=== PATIENT | male | born 1970 | race Hispanic/Latino ===

== ENCOUNTER 2019-12-01 20:12 | Inpatient (IN) | payer SELFPAY ==
[~2019-12-01 20:12] MED LIST: Iopamidol-370 76% 500 ML 1 ML ONE
[2019-12-01] MEDS ORDERED: Ondansetron PF 4 MG/2 ML Vial ONE (21:06)
[2019-12-01] MEDS ORDERED: Morphine 4 MG/ML VIAL ONE (21:06)
--- NOTE | 2019-12-01 22:31 | CT ---
EXAM: CT ABDOMEN AND PELVIS HISTORY: Epigastric pain. Abdominal pain. COMPARISON: None. Procedure: Multiple contiguous axial images were obtained and a CT of the abdomen and pelvis with IV contrast. C oronal reformats were performed. FINDINGS: Lower Chest: Interval evaluated 0.5 and 0.6 cm solid nodules in the right lower lobe Vessels: Normal caliber aorta Heart: Normal heart Abdomen: Portal vein:Patent Gallbladder: Mild enhancement of the gallbladder wall with mild stranding of the pericholecystic fat. Liver: within normal limits. Pancreas: within normal limits. Spleen: within normal limits. Adrenals: within normal limits. Kidneys: Symmetric enhancement. No obstructive uropathy. Peritoneum: No free air or fluid collection. Small amount of stranding of the mesentery in the gallbl adder fossa. Bowel: Limited evaluation due to the lack of oral contrast administration. Fluid and Fecalization of the distal ileum and part be due to a developing obstructive process or ileus. Retrocecal appendix is air-filled with a normal caliber. Adjacent fat stranding likely reactive secondary to the findings in the gallbladder fossa. Scattered fecal material in a nondistended, nondilated colon. Diverticulosis, without evidence of diverticulitis Mesentery and Retroperitoneum: No enlarged mesenteric or retroperitoneal lymph nodes. Abdominal Wall: within normal limits. Pelvis: Reproductive Organs: Reproductive organs are unremarkable. Pelvis: No mass, lymphadenopathy, free air or free fluid. Bladder: within normal limits. Bones: No acute osseous abnormalities. Bilateral pars defects at L5 without significant spondylolisth esis. IMPRESSION: 1. Possible developing ileus or bowel obstruction with regards the distal small bowel loops. 2. CT evidence for cholecystitis. 3. Incompletely evaluated solid nodules in the right lower lobe. Code lung nodule
[2019-12-01 22:38] LABS: #Lymphocytes 1.1 thou/uL (1.20-3.40); #Monocytes 0.6 thou/uL (0.11-0.59); #Neutrophils 6.5 thou/uL (1.40-6.50); %Basophils 0.3 % (0.0-1.0); %Eosinophils 0.2 % (0.0-10.0); %Lymphocytes 12.8 % (21.0-51.0); %Monocytes 7.1 % (0.0-10.0); %Neutrophils 79.6 % (42.0-75.0); Hemoglobin 13.8 g/dL (14.0-18.0); Mean Corpuscular HGB CONC 32.8 g/dL (32.0-36.0); Mean Corpuscular Hemoglobin 30.1 pg (27.0-31.0); Mean Corpuscular Volume 91.8 fL (78.0-98.0); Mean Platelet Volume 9.3 fL (7.4-10.4); Platelet Count 162 thou/uL (130-400); RBC Distribution Width 11.5 % (11.5-14.5); Red Blood Cell (RBC) Count 4.57 mill/uL (4.70-6.10); White Blood Cell (WBC) Count 8.2 thou/uL (4.8-10.8)
[2019-12-01 23:13] LABS: ALT (SGPT) 11 U/L (8-55); AST (SGOT) 13 U/L (5-34); Albumin 3.9 g/dL (3.5-5.0); Alkaline Phosphatase 81 U/L (40-110); Anion Gap 12 mmol/L (10-20); BUN (Urea Nitrogen) 12 mg/dL (8.4-25.7); Calc. Creatinine Clearance 0 mL/min (70-130); Calcium 8.9 mg/dL (7.8-10.44); Carbon Dioxide 30 mmol/L (22-29); Chloride 99 mmol/L (98-107); Estimated GFR-MDRD 81; Globulin 2.6 g/dL (2.4-3.5); Glucose 238 mg/dL (70-105); Lipase 51 U/L (8-78); Potassium 3.6 mmol/L (3.5-5.1); Protein, Total 6.5 g/dL (6.0-8.3); Sodium 137 mmol/L (136-145)
[2019-12-01 23:21] LABS: Bilirubin Negative (Negative); Blood, Urine Negative (Negative); Clarity Clear (Clear); Glucose, Urine (Dipstick) 500 mg/dL (Negative); Leukocyte Negative Leu/uL (Negative); Nitrite Negative (Negative); Protein, Urine (Dipstick) 20 mg/dL (Neg-Trace); Urobilinogen Normal mg/dL (Less than 2)
[2019-12-02] MEDS ORDERED: Piperacillin/Tazobactam 3.375 GM VIAL ONE (00:02)
[2019-12-02] MEDS ORDERED: Ondansetron ODT 4 MG TAB SL PRN (01:16)
[2019-12-02] MEDS ORDERED: Ondansetron PF 4 MG/2 ML Vial IVP PRN ×2 (01:16→10:42)
[2019-12-02] MEDS: Lactated Ringer's 1,000 ML IV SCH ×2 (03:09→08:17)
[2019-12-02 04:13] VITALS: BMI 20.9
[2019-12-02] MEDS ORDERED: Piperacillin/Tazobactam 3.375 GM in Sodium Chloride 0.9% 100 ML IVPB SCH (06:00)
[2019-12-02 06:35] LABS: #Lymphocytes 1.2 thou/uL (1.20-3.40); #Monocytes 0.6 thou/uL (0.11-0.59); #Neutrophils 4.6 thou/uL (1.40-6.50); %Basophils 0.1 % (0.0-1.0); %Eosinophils 0.2 % (0.0-10.0); %Lymphocytes 19.1 % (21.0-51.0); %Monocytes 8.7 % (0.0-10.0); %Neutrophils 71.9 % (42.0-75.0); Hemoglobin 13.2 g/dL (14.0-18.0); Mean Corpuscular HGB CONC 33.7 g/dL (32.0-36.0); Mean Corpuscular Hemoglobin 31.1 pg (27.0-31.0); Mean Corpuscular Volume 92.3 fL (78.0-98.0); Mean Platelet Volume 9.4 fL (7.4-10.4); Platelet Count 157 thou/uL (130-400); RBC Distribution Width 11.5 % (11.5-14.5); Red Blood Cell (RBC) Count 4.23 mill/uL (4.70-6.10); White Blood Cell (WBC) Count 6.3 thou/uL (4.8-10.8)
[2019-12-02 06:59] LABS: ALT (SGPT) 9 U/L (8-55); AST (SGOT) 13 U/L (5-34); Albumin 3.5 g/dL (3.5-5.0); Alkaline Phosphatase 70 U/L (40-110); Anion Gap 15 mmol/L (10-20); BUN (Urea Nitrogen) 10 mg/dL (8.4-25.7); Bilirubin, Direct 0.7 mg/dL (0.1-0.3); Bilirubin, Total 1.9 mg/dL (0.2-1.2); Calc. Creatinine Clearance 86 mL/min (70-130); Calcium 8.3 mg/dL (7.8-10.44); Carbon Dioxide 24 mmol/L (22-29); Chloride 101 mmol/L (98-107); Estimated GFR-MDRD Greater than 90; Glucose 207 mg/dL (70-105); Sodium 136 mmol/L (136-145)
[2019-12-02] MEDS ORDERED: cefOXitin Sodium/Dextrose,Iso 2 GM in Premix Bag 1 BAG IVPB SCH (07:45)
--- NOTE | 2019-12-02 07:54 | HP ---
CHIEF COMPLAINT: Right upper quadrant abdominal pain. HISTORY OF PRESENT ILLNESS: The patient is a 49-year-old male, who presents with a 3-day history of right upper quadrant pain, nausea. No vomiting. No fever or chills. PAST MEDICAL HISTORY: Diabetes, hypertension, hyperlipidemia. PAST SURGICAL HISTORY: None. MEDICATIONS: 1. Metformin. 2. Lipitor. 3. Januvia. 4. Glipizide. 5. Lisinopril. 6. Flomax. ALLERGIES: NO KNOWN DRUG ALLERGIES. SOCIAL HISTORY: He is . 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 No tobacco. Rare alcohol. [place]ian speaking. FAMILY HISTORY: Noncontributory. PHYSICAL EXAMINATION: VITAL SIGNS: Temperature 98, pulse 98, blood pressure 110/73. GENERAL: Well-developed, well-nourished male, in no apparent distress. HEENT: No jaundice. LUNGS: Clear. HEART: Regular rate and rhythm. ABDOMEN: Tender in the right upper quadrant. No palpable mass. EXTREMITIES: Unremarkable. LABORATORY DATA: White count 6.3, hemoglobin and hematocrit are 13 and 39, platelet count 157. Electrolytes are fine. Elevated glucose at 207. Total bilirubin is 1.9, down from [address] scan shows some ileus with a distended thickened wall gallbladder, consistent with acute cholecystitis. ASSESSMENT: Cholecystitis. PLAN: Laparoscopic cholecystectomy with cholangiogram. CONSENT: I have discussed planned procedure as well as risk of bleeding, infection, injury to bile duct, injury to bowel, need to open. He understands and gives informed consent. Job ID: [id number]
[2019-12-02] MEDS ORDERED: Iopamidol 50 ML FS ONE (09:24)
[2019-12-02] MEDS ORDERED: Bupivacaine 0.25% HCL 30 ML VIAL ONE (09:24)
[2019-12-02] MEDS ORDERED: Lidocaine 1% w/Epinephrine 1:100K 20 ML VIAL ONE (09:24)
[2019-12-02] MEDS ORDERED: Iopamidol 0 ML ONE (09:24)
[2019-12-02] MEDS ORDERED: Famotidine/PF 20 mg/2ml Vial ONE (09:32)
[2019-12-02] MEDS ORDERED: Fentanyl 100 MCG/2 ML VIAL ONE ×3 (09:32→11:30)
[2019-12-02] MEDS ORDERED: Midazolam HCl 2 mg/2 ml Vial ONE (09:32)
[2019-12-02] MEDS ORDERED: SUGAMMADEX SODIUM 200 MG/2 ML VIAL ONE (10:39)
[2019-12-02] MEDS ORDERED: Calcium Carbonate 500 MG ChewTAB PO PRN (10:42)
[2019-12-02] MEDS ORDERED: Morphine 2 MG/ML SYRINGE SLOW IVP PRN (10:42)
[2019-12-02] MEDS ORDERED: HYDROcodone/Acetaminophen 10/325 mg Tablet PO PRN (10:42)
[2019-12-02] MEDS ORDERED: Dextrose 5% in Water 1,000 ML IV PRN (10:42)
[2019-12-02] MEDS ORDERED: Morphine 4 MG/ML VIAL SLOW IVP PRN (10:42)
[2019-12-02] MEDS ORDERED: Promethazine HCl 25 MG/ML VIAL IM PRN (10:42)
[2019-12-02] MEDS ORDERED: Mag-Al 1200 mg/1200 mg/30 ML UDCUP PO PRN (10:42)
[2019-12-02] MEDS ORDERED: hydrALAZINE 20 MG/ML VIAL SLOW IVP PRN (10:42)
[2019-12-02] MEDS ORDERED: Dextrose 50% Abboject 50 ML SYRINGE SLOW IVP PRN (10:42)
--- NOTE | 2019-12-02 11:44 | OP ---
DATE OF PROCEDURE: 12/02/2019 PREOPERATIVE DIAGNOSIS: Acute cholecystitis. PROCEDURE PERFORMED: Laparoscopic cholecystectomy with intraoperative cholangiogram. INDICATIONS: This is a 49-year-old diabetic male with 2-day history of right upper quadrant pain. CT showed acute cholecystitis. FINDINGS: Thickened wall, inflamed, filled with pus. Cholangiogram did not show any filling defects, free flow in the duodenum. DESCRIPTION OF PROCEDURE: After informed consent was obtained, the patient was taken to the operating room, given general endotracheal anesthesia, placed in supine position. The abdomen was prepped and draped in usual fashion. Local anesthesia was infiltrated subcutaneously and deep. Subumbilical incision was performed, subcu divided sharply. The fascia grasped with two stay sutures of 0 Vicryl placed through each side of midline. Midline incised. Digital palpation revealed no local adhesions. Blunt 12-mm trocar inserted. Pneumoperitoneum was created to a pressure of 15 mmHg. A 0-degree laparoscope inserted under direct vision, three 5-mm ports were placed subcostally. The gallbladder was very inflamed. Aspirating needle was used to remove approximately 50 mL of thick purulent fluid. This was sent for culture. The peritoneum opened to expose the cystic duct artery in critical view. A clip placed at the base of the gallbladder. Incision made in the cystic duct. The Arrow cholangiocatheter inserted. Intraoperative cholangiogram was performed utilizing fluoroscopy. There were no filling defects, free flow in the duodenum. The catheter removed. The duct was triply ligated and divided. The artery triply ligated and divided. The gallbladder removed from its fossa utilizing electrocautery, placed in an endosac and removed from the abdomen in the endosac. Hemostasis was assured. The abdomen was thoroughly irrigated. Irrigation fluid removed. Trocars and retractors were removed. Fascia closed with interrupted 0 Vicryl suture. Skin closed with interrupted 4-0 Rapide. Dermabond applied. The patient tolerated the procedure well, transferred to Recovery in good condition. Sponge and needle count verified correct x2. Job ID: [id number]
[2019-12-02] MEDS: Sodium Chloride 0.9% 1,000 ML IV SCH ×2 (12:06→21:32)
[2019-12-02] MEDS: Ketorolac Tromethamine 30 MG/ML VIAL IVP SCH ×2 (12:07→17:40)
[2019-12-02] MEDS: Piperacillin/Tazobactam 3.375 GM in Sodium Chloride 0.9% 100 ML IVPB SCH ×2 (12:07→17:41)
--- NOTE | 2019-12-02 12:22 | RAD ---
CHOLANGIOGRAM IN SURGERY: Date: 12/02/2019 COMPARISON: CT abdomen/pelvis dated 12/01/2019. HISTORY: Cholelithiasis. FINDINGS/IMPRESSION: Limited fluoroscopic views from a cholangiogram taken in surgery were submitted for interpretation. C ontrast is seen in the common bile duct and pancreatic duct, as well as the duodenum. No obvious fill ing defects are seen. POS: EAA
[2019-12-02] MEDS ORDERED: Rocuronium Bromide 10 MG/ML (10ML VIAL) ONE (15:47)
[2019-12-02] MEDS ORDERED: Ondansetron PF 4 MG/2 ML Vial ONE (15:47)
[2019-12-02] MEDS ORDERED: EPHEDRINE 25 MG/5 ML SYRINGE ONE (15:47)
[2019-12-02] MEDS ORDERED: PROPOFOL 200 MG/20 ML VIAL ONE (15:47)
[2019-12-02] MEDS ORDERED: Glycopyrrolate 0.2 MG/ML 5 ML SYRINGE ONE (15:47)
[2019-12-02] MEDS ORDERED: Ketorolac Tromethamine 30 MG/ML VIAL ONE (15:47)
[2019-12-02] MEDS ORDERED: Lidocaine 1% PF 5 ML VIAL ONE (15:47)
--- NOTE | 2019-12-02 16:10 | EKG ---
Test Reason : Blood Pressure : / mmHG Vent. Rate : 083 BPM Atrial Rate : 083 BPM P-R Int : 152 ms QRS Dur : 090 ms QT Int : 376 ms P-R-T Axes : 083 070 039 degrees QTc Int : 441 ms Normal sinus rhythm Normal ECG Confirmed by VITALY MATIAS DO ([id number]), acquisitions editor HU BOONE ([id number] on 12/02/2019 4:09:20 PM Referred By: Confirmed By:VITALY MATIAS DO
[2019-12-02] MEDS: HYDROcodone/Acetaminophen 10/325 mg Tablet PO PRN (21:31)
[2019-12-02] MEDS: Famotidine 20 MG TAB PO SCH (21:31)
[2019-12-02] MEDS: Famotidine/PF 20 mg/2ml Vial SLOW IVP SCH (21:32)
[2019-12-03] MEDS: Ketorolac Tromethamine 30 MG/ML VIAL IVP SCH ×3 (00:48→11:48)
[2019-12-03] MEDS: Piperacillin/Tazobactam 3.375 GM in Sodium Chloride 0.9% 100 ML IVPB SCH ×3 (00:48→11:49)
[2019-12-03] MEDS: Sodium Chloride 0.9% 1,000 ML IV SCH ×2 (05:01→10:28)
[2019-12-03 06:39] LABS: #Lymphocytes 0.7 thou/uL (1.20-3.40); #Monocytes 0.6 thou/uL (0.11-0.59); #Neutrophils 9.5 thou/uL (1.40-6.50); %Basophils 0.1 % (0.0-1.0); %Lymphocytes 6.6 % (21.0-51.0); %Monocytes 5.4 % (0.0-10.0); %Neutrophils 87.9 % (42.0-75.0); Hemoglobin 13.3 g/dL (14.0-18.0); Mean Corpuscular HGB CONC 33.5 g/dL (32.0-36.0); Mean Corpuscular Hemoglobin 31.6 pg (27.0-31.0); Mean Corpuscular Volume 94.4 fL (78.0-98.0); Mean Platelet Volume 9.3 fL (7.4-10.4); Platelet Count 155 thou/uL (130-400); RBC Distribution Width 11.7 % (11.5-14.5); Red Blood Cell (RBC) Count 4.19 mill/uL (4.70-6.10); White Blood Cell (WBC) Count 10.7 thou/uL (4.8-10.8)
[2019-12-03 07:02] LABS: ALT (SGPT) 41 U/L (8-55); ALT (SGPT) 42 U/L (8-55); AST (SGOT) 54 U/L (5-34); AST (SGOT) 55 U/L (5-34); Albumin 3.2 g/dL (3.5-5.0); Alkaline Phosphatase 58 U/L (40-110); Alkaline Phosphatase 59 U/L (40-110); Anion Gap 17 mmol/L (10-20); BUN (Urea Nitrogen) 8 mg/dL (8.4-25.7); Bilirubin, Direct 0.4 mg/dL (0.1-0.3); Bilirubin, Total 1.8 mg/dL (0.2-1.2); Bilirubin, Total 1.9 mg/dL (0.2-1.2); Calc. Creatinine Clearance 70 mL/min (70-130); Calcium 7.8 mg/dL (7.8-10.44); Carbon Dioxide 15 mmol/L (22-29); Chloride 106 mmol/L (98-107); Estimated GFR-MDRD 79; Globulin 2.6 g/dL (2.4-3.5); Glucose 249 mg/dL (70-105); Lipase 15 U/L (8-78); Potassium 4.4 mmol/L (3.5-5.1); Protein, Total 5.6 g/dL (6.0-8.3); Protein, Total 5.8 g/dL (6.0-8.3); Sodium 134 mmol/L (136-145)
--- NOTE | 2019-12-03 08:02 | PRG ---
DATE OF SERVICE: 12/03/2019 SUBJECTIVE: The patient is feeling some bloating. He is tolerating some clear liquids. He denies nausea. He is not hungry. He denies any passage of flatus. OBJECTIVE: He looks okay. His abdomen does not appear to be distended. The incisions are healing well. There is no evidence of infection. LABORATORY DATA: His white count is 10, hemoglobin and hematocrit are 13 and 39, platelet count 155. Electrolytes: His glucose is 249, T bilirubin 1.8. The culture is not growing anything. ASSESSMENT: Status post laparoscopic cholecystectomy. PLAN: Restart his home medications. Ambulate. Job ID: [id number]
[2019-12-03] MEDS: Famotidine 20 MG TAB PO SCH (08:10)
[2019-12-03] MEDS: Famotidine/PF 20 mg/2ml Vial SLOW IVP SCH (08:11)
[2019-12-03] MEDS: HYDROcodone/Acetaminophen 10/325 mg Tablet PO PRN (08:14)
[2019-12-03] MEDS ORDERED: Lisinopril 2.5 MG TAB PO SCH (09:00)
[2019-12-03] MEDS ORDERED: Enoxaparin Sodium 30 MG/0.3 ML SYRINGE SC SCH (09:00)
[2019-12-03 10:23] VITALS: BP 113/74; TEMP 98.1
[2019-12-03] MEDS ORDERED: Insulin Regular 300 UNITS/3 ML VIAL SC PRN ×2 (11:27)
--- NOTE | 2019-12-03 12:38 | PDOC.HOSPP ---
- Subjective Encounter Date: 12/03/19 Encounter Time: 12:00 Subjective: Patient seen and examined for med mngt. Abd pain improving. No N/V. No other complaints. No overnight events - Objective Vital Signs & Weight: Vital Signs (12 hours) Temp Pulse Resp BP Pulse Ox 12/03/19 08:10 107 H 12/03/19 08:00 98.1 F 100 18 113/74 97 12/03/19 04:00 98.0 F 107 H 16 106/69 96 Weight Weight 125 lb 10.616 oz I&O: 12/02/19 12/03/19 12/04/19 06:59 06:59 06:59 Intake Total 400 Output Total 300 Balance -300 400 Result Diagrams: 12/03/19 06:26 12/03/19 06:26 Additional Labs: Accuchecks 12/03/19 12/03/19 12/02/19 11:01 04:25 19:58 POC Glucose 324 H 239 H 226 H 12/02/19 16:49 POC Glucose 250 H Radiology Reviewed by me: Yes (CT abd - Acute Cholecystitis) Hospitalist ROS - Review of Systems Respiratory: denies: cough, dry, shortness of breath, hemoptysis, SOB with excertion, pleuritic pain, sputum, wheezing, other Cardiovascular: denies: chest pain, palpitations, orthopnea, paroxysmal noc. dyspnea, edema, light headedness, other - Medication Medications: Active Medications Generic Name Dose Route Start Last Admin Trade Name Freq PRN Reason Stop Dose Admin Hydrocodone Bitart/Acetaminophen 1 tab 12/02/19 10:42 12/03/19 08:14 [place] 10/325 PO 1 tab Q6H PRN Administration Moderate Pain (4-6) Enoxaparin Sodium 30 mg 12/03/19 09:00 12/03/19 08:11 Lovenox SC 30 mg 0900 ALEXIS Administration Famotidine 20 mg 12/02/19 21:00 12/03/19 08:10 Pepcid PO 20 mg Q12HR ALEXIS Administration Famotidine 20 mg 12/02/19 21:00 12/03/19 08:11 Pepcid SLOW IVP Not Given Q12HR ALEXIS Glipizide 10 mg 12/03/19 11:30 12/03/19 11:48 Glucotrol Xl PO 12/03/19 13:30 10 mg NOW ALEXIS Administration Sodium Chloride 1,000 mls @ 120 mls/hr 12/02/19 10:45 12/03/19 10:28 Normal Saline 0.9% IV 1,000 mls .Q8H20M ALEXIS Administration Piperacillin Sod/Tazobactam 100 mls @ 200 mls/hr 12/02/19 12:00 12/03/19 11: 49 Sod 3.375 gm/ Sodium Chloride IVPB 100 mls Q6HR ALEXIS Administration Insulin Human Regular 0 units 12/03/19 11:27 12/03/19 11:52 Humulin R SC 8 unit .MODERATE SLIDING SC PRN Administration Moderate Correctional Scale Ketorolac Tromethamine 15 mg 12/02/19 12:00 12/03/19 11:48 Toradol IVP 12/07/19 12:01 15 mg Q6HR ALEXIS Administration Lisinopril 2.5 mg 12/03/19 09:00 12/03/19 08:10 Zestril PO 2.5 mg DAILY ALEXIS Administration Morphine Sulfate 2 mg 12/02/19 10:42 12/02/19 16:20 Morphine SLOW IVP 2 mg Q2H PRN Administration Mild Pain (1-3) - Exam General Appearance: NAD Neck: supple, symmetric, no JVD, no carotid bruit Heart: RRR, no gallops, no rubs, normal peripheral pulses Respiratory: no wheezes, no rales, no ronchi, normal chest expansion Gastrointestinal: non-tender, non-distended, no guarding, no rigidity Extremities: no cyanosis, no clubbing, no edema Neurological: no new deficit Psychiatric: normal affect, A&O x 3 Hosp A/P - Plan DVT proph w/SCDs DM2 - uncontrolled HTN HLD Hyponatremia Abn LFTs due to Acute cholecystitis PLAN: on IV Zosyn s/p Lap delvin 12/01 Restart Glipizide XL, Metformin and Januvia Glucose check ACHS and 0200 Moderate sliding scale Cont Lisinopril Add PRN meds
[2019-12-03] MEDS ORDERED: hydrALAZINE 20 MG/ML VIAL SLOW IVP PRN (12:50)
[2019-12-03] MEDS ORDERED: metFORMIN 500 MG TAB PO SCH (17:00)
--- NOTE | 2019-12-03 20:58 | DIS ---
DATE OF ADMISSION: 12/02/2019 DATE OF DISCHARGE: 12/03/2019 DISCHARGE DIAGNOSES: Acute cholecystitis and diabetes mellitus. PROCEDURES DURING ADMISSION: Laparoscopic cholecystectomy with intraoperative cholangiogram. HOSPITAL COURSE: The patient was admitted, given IV antibiotics, taken to the operating room, where he underwent a laparoscopic cholecystectomy with cholangiogram. Cholangiogram was fine. He was found to have acute cholecystitis. He has been on antibiotics. He is doing well. He is tolerating liquids well. He is discharged home on [place], Zofran, and doxycycline and follow up with me in 2 weeks. Job ID: [id number]
[2019-12-04] MEDS ORDERED: Saccharomyces boulardii 250 MG CAP PO SCH (09:00)
[2019-12-04] MEDS ORDERED: Alogliptin 6.25 MG TAB PO SCH (09:00)
== END 2019-12-03 17:18 | disposition home or self-care (01) | DRG 418 ==
LOC: ERS 20:12 → T4-A 12-02 00:46
PROVIDERS: ADMIT Surgery; ATTEND Surgery
PROC: 0FT44ZZ Resection of Gallbladder, Percutaneous Endoscopic Approach (ICD-10-PCS; principal; 2019-12-02)
PROC: BF111ZZ Fluoroscopy of Biliary and Pancreatic Ducts using Low Osmolar Contrast (ICD-10-PCS; 2019-12-02)
DX: K81.0 Acute cholecystitis (principal); E87.1 Hypo-osmolality and hyponatremia; E78.5 Hyperlipidemia, unspecified; E78.00 Pure hypercholesterolemia, unspecified; I10 Essential (primary) hypertension; E11.65 Type 2 diabetes mellitus with hyperglycemia; Z79.899 Other long term (current) drug therapy; Z79.84 Long term (current) use of oral hypoglycemic drugs
CPT/HCPCS: 36415; 36416; 47532; 74177; 80048; 80053; 80076; 81003; 83690; 84484; 85025; 86850; 86900; 86901; 87070; 87077; 87186; 87205; 88304; 93005; 96365; 96375; J0694; J1650; J1815; J1885; J2001; J2250; J2270; J2405; J2543; J2704; J3010; J3490; Q9967; S0020; S0028

== ENCOUNTER 2020-01-20 19:15 | Emergency (ER) | payer OTHER, SELFPAY ==
[2020-01-20 20:21] LABS: Hemoglobin 13.6 g/dL (14.0-18.0); Mean Corpuscular HGB CONC 35.1 g/dL (32.0-36.0); Mean Corpuscular Hemoglobin 30.6 pg (27.0-31.0); Mean Corpuscular Volume 87.2 fL (78.0-98.0); Mean Platelet Volume 9.7 fL (7.4-10.4); Platelet Count 235 thou/uL (130-400); RBC Distribution Width 11.9 % (11.5-14.5); Red Blood Cell (RBC) Count 4.43 mill/uL (4.70-6.10); White Blood Cell (WBC) Count 8.6 thou/uL (4.8-10.8)
[2020-01-20] MEDS ORDERED: Aspirin Chewable 81 MG TAB ONE (20:25)
[2020-01-20] MEDS ORDERED: Nitroglycerin 2% Ointment 1 INCH/1 GM Packet ONE (20:25)
[2020-01-20 20:38] LABS: ALT (SGPT) 14 U/L (8-55); AST (SGOT) 17 U/L (5-34); Albumin 4.3 g/dL (3.5-5.0); Alkaline Phosphatase 108 U/L (40-110); Anion Gap 15 mmol/L (10-20); BUN (Urea Nitrogen) 12 mg/dL (8.4-25.7); Calc. Creatinine Clearance 0 mL/min (70-130); Calcium 9.9 mg/dL (7.8-10.44); Carbon Dioxide 27 mmol/L (22-29); Chloride 97 mmol/L (98-107); Estimated GFR-MDRD 85; Globulin 3.6 g/dL (2.4-3.5); Glucose 236 mg/dL (70-105); Potassium 3.9 mmol/L (3.5-5.1); Protein, Total 7.9 g/dL (6.0-8.3); Sodium 135 mmol/L (136-145)
--- NOTE | 2020-01-20 20:43 | RAD ---
Chest AP view INDICATION: Shortness of breath and midsternal chest pain COMPARISON: Single view of the chest dated August 06, 2009 FINDINGS: Lungs: The lungs are clear Cardiac silhouette: The cardiomediastinal silhouette appears within normal limits. Pulmonary vasculature: Normal Pleural spaces: No pleural effusion or pneumothorax is demonstrated. Upper abdomen: No abnormality seen. Osseous structures: No acute osseous abnormality. Additional findings: None. IMPRESSION: No acute cardiopulmonary abnormality.
[2020-01-20 20:44] LABS: Band 11 % (5-11); Lymphocytes 12 % (21-51); MDiff Complete? YES; Monocytes 13 % (0-10); Neutrophil 64 % (42-75)
[2020-01-20 22:55] LABS: Troponin I 0.014 ng/mL (< 0.028)
[2020-01-21 16:12] LABS: SARS-CoV-2 MS2 Positive; SARS-CoV-2 N Gene Positive; SARS-CoV-2 S Gene Positive; SARS-CoV-2 orf1ab Positive
== END 2020-01-20 23:44 | disposition home or self-care (01) ==
LOC: ERS 19:15
DX: U07.1 COVID-19 (principal); E11.9 Type 2 diabetes mellitus without complications; E78.5 Hyperlipidemia, unspecified; E78.00 Pure hypercholesterolemia, unspecified; Z79.84 Long term (current) use of oral hypoglycemic drugs; Z79.899 Other long term (current) drug therapy
CPT/HCPCS: 36415; 71045; 80053; 84484; 85025; 87635; 93005; U0003